=== PATIENT | male | born 1985 | race Caucasian/White ===

== ENCOUNTER 2024-08-20 00:10 | Emergency (ER) | payer MEDICAID, OTHER ==
[~2024-08-20] VITALS: Ht 172.7 cm; Wt 69.7 kg
[2024-08-20 00:22] VITALS: BP 153/92; PULSE 120; TEMP 98.7; O2SAT 95
[2024-08-20] MEDS ORDERED: IBUP-1985 PO (01:43)
[2024-08-20] MEDS: ibuprofen 200mg tablet PO ONE (02:28)
[2024-08-20 02:31] VITALS: RESP 16
== END 2024-08-20 02:38 | disposition home or self-care (01) ==
LOC: ER 02:37
DX: S50.02XA Contusion of left elbow, initial encounter (principal); Y04.0XXA Assault by unarmed brawl or fight, initial encounter; Y93.89 Activity, other specified; Y92.89 Other specified places as the place of occurrence of the external cause; Y99.8 Other external cause status
CPT/HCPCS: 73080; 99283